=== PATIENT | female | born 1955 | race Caucasian/White ===

== ENCOUNTER 2019-05-26 05:45 | Outpatient (CLI) | payer BC ==
[~2019-05-26] VITALS: Ht 152.4 cm; Wt 47.3 kg
== END 2019-05-26 14:49 ==
LOC: PREOP 05:45
PROVIDERS: ATTEND Surgery
DX: Z01.818 Encounter for other preprocedural examination (principal)

== ENCOUNTER 2019-06-02 06:51 | Day surgery (SDC) | payer BC ==
[2019-06-02] VITALS (9 sets, daily range): BP systolic 75–124; BP diastolic 41–76
[~2019-06-02] VITALS: Ht 152.4 cm; Wt 47.3 kg
[2019-06-02] MEDS ORDERED: LACTATED RINGERS 1,000 ML IV STA (07:10)
[2019-06-02] MEDS ORDERED: PROPOFOL INJECTION 50 ML IV ONE (07:17)
[2019-06-02] MEDS ORDERED: MIDAZOLAM 2 MG/2 ML (VERSED) VIAL ONE (07:17)
[2019-06-02] MEDS ORDERED: LACTATED RINGERS 1,000 ML IV ONE (07:21)
--- NOTE | 2019-06-02 08:12 | Progress Note-Pre Operative ---
Pre-Operative Progress Note H&P Reviewed The H&P was reviewed, patient examined and no changes noted. Time Seen by Provider: 08:05 Date H&P Reviewed: Jun 02, 2019 Time H&P Reviewed: 08:06 Pre-Operative Diagnosis: Personal Hx of Colon polyps RENZO WEAVER DO Jun 02, 2019 08:12 POS
--- NOTE | 2019-06-02 08:44 | Progress Note-Post Operative ---
Post-Operative Progess Note Surgeon (s)/Knotting Machine Operator Portable (s) Surgeon RENZO WEAVER DO Knotting Machine Operator Portable: Joseph Munson MS IV Pre-Operative Diagnosis Personal Hx of Colon polyps Post-Operative Diagnosis Internal Hemorrhoids Procedure & Operative Findings Date of Procedure 06/02/19 Procedure Performed/Findings Colonoscopy Anesthesia Type IV sedation by BATTERY WRECKER OPERATOR Estimated Blood Loss Estimated blood loss (mL): none Specimens/Packing Specimens Removed none RENZO WEAVER DO Jun 02, 2019 08:44 POS
--- NOTE | 2019-06-02 08:45 | Endoscopy Discharge Instruct ---
Endo Procedure/Findings Findings 1.: Internal Hemorrhoids Discharge Instructions - Activity: You might feel a little sleepy until tomorrow. This is due to the me dicine you received to relax you. Until tomorrow, you should: NOT drive a car, operate machinery or power tools. NOT drink any alcoholic beverages. NOT make any important decisions or sign importortant papers. Do not return to work until tomorrow, unless otherwise instructed. Resume previous activities tomorrow. Diet: Start by taking liquids. If you tolerate liquids, advance to solid food. make an appointment for 2 weeks 1.: Colonscopy in 10 years Notify Physician - If you experience excessive bleeding, unusual abdominal pain, fever, or chest pain, contact your doctor immediately. RENZO WEAVER DO Jun 02, 2019 08:45 POS
--- NOTE | 2019-06-02 14:09 | Anesthesia-General Post-Op ---
MAC Patient Condition Mental Status/LOC: Same as Preop Cardiovascular: Satisfactory Nausea/Vomiting: Absent Respiratory: Satisfactory Pain: Controlled Complications: Absent Post Op Complications Complications None Follow Up Care/Instructions Patient Instructions None needed. Anesthesiology Discharge Order Discharge Order Patient is doing well, no complaints, stable vital signs, no apparent adverse anesthesia problems. No complications reported per nursing. JOHNNY MCKENNA CRNA Jun 02, 2019 14:09 POS
--- NOTE | 2019-06-02 15:10 | OPERATIVE REPORT ---
DATE OF SERVICE: PREOPERATIVE DIAGNOSIS: Personal history of colon polyps. POSTOPERATIVE DIAGNOSIS: Internal hemorrhoids. PROCEDURE: Colonoscopy. SURGEON: Krishna Durán DO SYSTEM ENGINEER: Herbert Student ANESTHESIA: IV sedation by GEOSCIENCES ASSOCIATE PROFESSOR. SPECIMENS: None. BLOOD LOSS: None. FLUIDS: Per anesthesia. POSTOPERATIVE CONDITION: Stable. INDICATION FOR PROCEDURE: The patient is a 64-year-old female who had a colonoscopy last year, had multiple polyps and apparently a large polyp that was not completely removed, needed a repeat colonoscopy per her previous endoscopies. FINDINGS: The patient had some small internal hemorrhoids do not see any polyps. PROCEDURE NOTE: After informed consent was obtained, the patient was brought to the endoscopy suite and placed in the left lateral decubitus position. She was administered IV sedation by the GEOSCIENCES ASSOCIATE PROFESSOR who then monitored her vitals the entire time, heart rate, blood pressure and pulse ox and the scope was inserted all the way to about 140 cm, able to get to the cecum, took a picture of appendiceal orifice, noted the ileocecal valve and then slowly withdrew the scope insufflating to look circumferentially at the weems looking the cecum, up the ascending colon to the hepatic flexure, then down the transverse colon, the splenic flexure, into the descending colon, then down the sigmoid and finally into the rectum, retroflexed the rectal vault, saw some minimal internal hemorrhoids, did not see any other pathology. Scope was removed. The patient tolerated the procedure and recovered in endoscopy suite. Job ID: [id number] DocumentID: [id number] Dictated Date: 06/02/2019 08:47:50 Oil Rig Driller Date: 06/02/2019 15:09:43 Dictated By: KRISHNA DURÁN DO MTDD
--- OUTSIDE RECORDS SUMMARY | 2019-06-27 06:23 | XMS REPORT | Continuity of Care Document ---
Author Organization Unknown Address Unknown Phone Unavailable Allergies Active Description Code Type Severity Reaction Onset Reported/Identified Relationship to Patient Clinical Status Yes No Known Drug Allergies [id number] Drug Allergy Unknown N/A 05/26/2019 Medications There is no data. Problems Date Dx Coded Attending Type Code Diagnosis Diagnosed By 05/26/2019 RENZO WEAVER DO Ot Z01.8 18 ENCOUNTER FOR OTHER PREPROCEDURAL EXAMIN 05/27/2019 RENZO WEAVER DO Ot Z01.8 18 ENCOUNTER FOR OTHER PREPROCEDURAL EXAMIN 06/04/2019 RENZO WEAVER DO Ot F17.2 10 NICOTINE DEPENDENCE, CIGARETTES, UNCOMPL 06/04/2019 RENZO WEAVER DO Ot K64.8 OTHER HEMORRHOIDS 06/04/2019 RENZO WEAVER DO Ot Z12.1 1 ENCOUNTER FOR SCREENING FOR MALIGNANT NE 06/04/2019 RENZO WEAVER DO Ot Z80.0 FAMILY HISTORY OF MALIGNANT NEOPLASM OF 06/04/2019 RENZO WEAVER DO Ot Z80.4 2 FAMILY HISTORY OF MALIGNANT NEOPLASM OF 06/04/2019 RENZO WEAVER DO Ot Z86.0 10 PERSONAL HISTORY OF COLONIC POLYPS Procedures There is no data. Results There is no data. Encounters ACCT No. Visit Date/Time Discharge Status Pt. Type Provider Facility Loc./Unit Complaint [id number] 06/02/2019 06:51:00 019 09:40:00 DIS Outpatient RENZO WEAVER DO [facility] ENDO SCREENING/HX POLYPS [id number] 05/26/2019 05:45:00 019 14:49:00 DIS Outpatient RENZO WEAVER DO [facility] PREOP COLONOSCOPY
== END 2019-06-02 09:40 | disposition home or self-care (01) ==
LOC: ENDO 06:51
PROVIDERS: ATTEND Surgery
DX: Z12.11 Encounter for screening for malignant neoplasm of colon (principal); K64.8 Other hemorrhoids; F17.210 Nicotine dependence, cigarettes, uncomplicated; Z86.010 Personal history of colon polyps; Z80.0 Family history of malignant neoplasm of digestive organs; Z80.42 Family history of malignant neoplasm of prostate

== ENCOUNTER → 2021-06-07 | Outpatient (CLI) | payer MEDICARE, OTHER ==
[2021-06-07 09:50] LABS: ALBUMIN 4.2 GM/DL (3.2-4.5); BILIRUBIN,TOTAL 0.6 MG/DL (0.1-1.0); CALCIUM 9.7 MG/DL (8.5-10.1); CREATININE SERUM 0.85 MG/DL (0.60-1.30); POTASSIUM 4.1 MMOL/L (3.6-5.0)
== END ==
LOC: LAB FS 08:46
PROVIDERS: ATTEND Registered Nurse Emergency
DX: E78.5 Hyperlipidemia, unspecified (principal)
CPT/HCPCS: 36415; 80053; 80061